=== PATIENT | female | born 2000 | race African-American/Black ===

== ENCOUNTER 2021-12-21 04:35 | Emergency (ER) | payer MEDICAID ==
[~2021-12-21] VITALS: Ht 162.6 cm; Wt 86.2 kg
[2021-12-21 04:45] VITALS: BP 129/75
--- NOTE | 2021-12-21 04:45 | NUR ---
to bed ambulatory
--- NOTE | 2021-12-21 05:04 | NUR ---
Dr. Carter examining patient.
[2021-12-21 06:50] VITALS: BP 129/75
== END 2021-12-21 06:50 | disposition home or self-care (01) ==
LOC: MED 04:35
DX: R51.9 Headache, unspecified (principal); Y04.8XXA Assault by other bodily force, initial encounter; Y92.89 Other specified places as the place of occurrence of the external cause; Y93.89 Activity, other specified; Y99.8 Other external cause status
CPT/HCPCS: 70450; 99284